=== PATIENT | female | born 1980 | race Caucasian/White ===

== ENCOUNTER 2016-12-14 11:42 | Day surgery (SDC) | payer MEDICAID ==
[2016-12-14] MEDS ORDERED: fentaNYL 100 MCG/2 ML INJ ONE (13:07)
[2016-12-14] MEDS ORDERED: MIDAZOLAM 2 MG/2 ML VIAL ONE (13:07)
[2016-12-14] MEDS ORDERED: IOPAMIDOL (ISOVUE-M 300) 15 ML VIAL IV ONE (13:53)
[2016-12-14] MEDS ORDERED: TRIAMCINOLONE ACETONIDE 200 MG/5 ML MDV IM ONE (13:53)
== END 2016-12-14 14:50 | disposition home or self-care (01) ==
LOC: FIMAGING 11:42
PROC: 3E0S33Z Introduction of Anti-inflammatory into Epidural Space, Percutaneous Approach (ICD-10-PCS; principal; 2016-12-14 13:55)
DX: M54.2 Cervicalgia (principal); M54.12 Radiculopathy, cervical region; R51 Headache; Z98.1 Arthrodesis status
CPT/HCPCS: J2250; J3010; J3301; Q9967

== ENCOUNTER 2017-02-04 12:04 | Day surgery (SDC) | payer MEDICAID ==
[2017-02-04] MEDS ORDERED: MIDAZOLAM 2 MG/2 ML VIAL ONE (12:19)
[2017-02-04] MEDS ORDERED: fentaNYL 100 MCG/2 ML INJ ONE (12:20)
[2017-02-04] MEDS ORDERED: NS 1,000 ML IV SCH (12:45)
[2017-02-04] MEDS ORDERED: HYDROmorphONE/DILAUDID 2 MG/ML INJ ONE (13:09)
[2017-02-04] MEDS ORDERED: TRIAMCINOLONE ACETONIDE 200 MG/5 ML MDV IM ONE (14:35)
[2017-02-04] MEDS ORDERED: IOPAMIDOL (ISOVUE-M 300) 15 ML VIAL IV ONE (14:35)
== END 2017-02-04 15:05 | disposition home or self-care (01) ==
LOC: FIMAGING 12:04
PROC: 3E0S33Z Introduction of Anti-inflammatory into Epidural Space, Percutaneous Approach (ICD-10-PCS; principal; 2017-02-04 14:16)
PROC: 3E0S3BZ Introduction of Anesthetic Agent into Epidural Space, Percutaneous Approach (ICD-10-PCS; principal; 2017-02-04 14:16)
DX: M54.2 Cervicalgia (principal); Z98.1 Arthrodesis status
CPT/HCPCS: J1170; J1200; J2250; J3010; J3301; Q9967

== ENCOUNTER → 2017-02-21 | Day surgery (SDC) | payer MEDICAID ==
[~2017-02-21] MED LIST: BUPIVACAINE 0.25% 30 ML SDV ONE; DEPO METHYLPREDNISOLONE 40 MG/ML SDV ONE; DEPO METHYLPREDNISOLONE 80 MG/ML SDV ONE
== END | disposition home or self-care (01) ==
LOC: FIMAGING 09:53
PROVIDERS: ATTEND Neurological Surgery
PROC: 3E0U33Z Introduction of Anti-inflammatory into Joints, Percutaneous Approach (ICD-10-PCS; principal; 2017-02-21)
PROC: 3E0U3NZ Introduction of Analgesics, Hypnotics, Sedatives into Joints, Percutaneous Approach (ICD-10-PCS; principal; 2017-02-21)
DX: M54.12 Radiculopathy, cervical region (principal)
CPT/HCPCS: J1030; J1040